=== PATIENT | female | born 1945 | race Caucasian/White ===

== ENCOUNTER 2016-11-13 09:24 | Emergency (ER) | payer MEDICARE ==
[2016-11-13] MEDS ORDERED: ASPIRIN 81 MG TABLET, CHEWABLE PO ONE (09:55)
--- NOTE | 2016-11-13 09:56 | ER Document Report ---
ED Medical Screen (RME) <APPLE EMMANUEL - Last Filed: 11/13/16 12:23> - General Mode of Arrival: Wheelchair Information source: Patient TRAVEL OUTSIDE OF THE [place] IN LAST 30 DAYS: No <[facility] VERONICA - Last Filed: 11/13/16 13:08> <ANNALISEACE ANN - Last Filed: 11/13/16 14:02> - General Chief Complaint: Shortness Of Breath Stated Complaint: SHORTNESS OF BREATH Time Seen by Provider: 11/13/16 09:52 Notes: Patient is a 71 year old female presenting to the ED today with complaints of shortness of breath and leg swelling for one month. Patient reports an increase of her shortness of breath over the last few days. Patient states she just returned home from a one week cruise. Patient drove to the cruise departure port and back home. Patient is not on blood thinners. Pt reports similar symptoms 4 years ago before aaortic valve was replaced. Pt denies cough or fevers. (UMU VERONICA) - Related Data Allergies/Adverse Reactions: metformin Allergy (Verified 11/13/16 09:29) Diarrhea Past Medical History - Past Medical History Cardiac Medical History: Reports: Hx Hypertension - MEDICATED Denies: Hx Heart Attack Pulmonary Medical History: Reports: Hx Asthma - SYMPTOMS IN THE FALL, NO MEDS SINCE FALL 2013 Neurological Medical History: Reports: Hx Migraine. Denies: Hx Cerebrovascular Accident, Hx Seizures Endocrine Medical History: Reports: Hx Hypothyroidism Renal/ Medical History: Denies: Hx Peritoneal Dialysis GI Medical History: Denies: Hx Hepatitis, Hx Hiatal Hernia, Hx Ulcer Infectious Medical History: Denies: Hx Hepatitis Past Surgical History: Reports: Hx Cardiac Surgery - valve replacement, Hx Hysterectomy, Hx Open Heart Surgery - December 18 2012, aortic valve replaced. Denies: Hx Mastectomy, Hx Pacemaker - Immunizations Hx Diphtheria, Pertussis, Tetanus Vaccination: Yes <[facility] VERONICA - Last Filed: 11/13/16 13:08> Review of Systems - Review of Systems Respiratory: See HPI, Short of breath. denies: Cough <[facility] VERONICA - Last Filed: 11/13/16 13:08> Physical Exam - Respiratory Respiratory status: No respiratory distress Chest status: Nontender Breath sounds: Normal <[facility] VERONICA - Last Filed: 11/13/16 13:08> - Extremities General lower extremity: Edema - b/l <ACE WOODY - Last Filed: 11/13/16 14:02> - Vital signs Vitals: Temp Pulse Resp BP Pulse Ox 97.7 F 56 L 20 172/78 H 95 11/13/16 09:30 11/13/16 09:30 11/13/16 09:30 11/13/16 09:30 11/13/16 09:30 Course - Laboratory Result Diagrams: 11/13/16 10:21 11/13/16 10:21 <APPLE EMMANUEL - Last Filed: 11/13/16 12:23> - Laboratory Result Diagrams: 11/13/16 10:21 11/13/16 10:21 <[facility] VERONICA - Last Filed: 11/13/16 13:08> - Laboratory Result Diagrams: 11/13/16 10:21 11/13/16 10:21 <ACE WOODY - Last Filed: 11/13/16 14:02> - Re-evaluation Re-evalutation: 11/13/16 12:[address] Perez in agreement the patient needs to be transferred or they could do a semiurgent catheter. Called by didn't at 1224 waiting for call back. (APPLE EMMANUEL) 11/13/16 14:02 I personally performed the services described in the documentation, reviewed and edited the documentation which was dictated to the scribe in my presence, and it accurately records my words and actions. (ACE WOODY) - Vital Signs Vital signs: Temp Pulse Resp BP Pulse Ox 97.7 F 57 L 19 145/82 H 96 11/13/16 09:32 11/13/16 09:32 11/13/16 12:37 11/13/16 12:37 11/13/16 12:37 - Laboratory Laboratory results interpreted by me: 11/13/16 11/13/16 11/13/16 10:21 10:21 10:21 WBC 13.8 H MCH 26.6 L RDW 15.8 H Absolute Neutrophils 10.3 H D-Dimer 0.72 H Glucose 112 H Alkaline Phosphatase 144 H Creatine Kinase 195 H Doctor's Discharge <APPLE EMMANUEL - Last Filed: 11/13/16 12:23> <[facility] VERONICA - Last Filed: 11/13/16 13:08> <ACE WOODY - Last Filed: 11/13/16 14:02> - Discharge Clinical Impression: angina acute, mild congestive heart failure Condition: Stable Disposition: [facility] Referrals: ESTEBAN BAEZA MD [Primary Care Provider] - Follow up as needed Scribe Documentation - Scribe Written by Scribe:: Crystal Wallis, 11/13/2016 1030 acting as scribe for :: Annalise <[facility] VERONICA - Last Filed: 11/13/16 13:08>
[2016-11-13 10:28] LABS: APPEARANCE,URINE CLEAR; BILIRUBIN,URINE NEGATIVE (NEGATIVE); GLUCOSE, URINE NEGATIVE (NEGATIVE); KETONES,URINE NEGATIVE (NEGATIVE); LEUKOCYTE ESTERASE,URINE NEGATIVE (NEGATIVE); NITRITE,URINE NEGATIVE (NEGATIVE); PROTEIN,URINE NEGATIVE (NEGATIVE); URINE SPECIFIC GRAVITY 1.005; UROBILINOGEN,URINE NEGATIVE mg/dL (<2.0)
[2016-11-13 10:39] LABS: ABSOLUTE BASOPHILS # (AUTO) 0.1 10^3/uL (0.0-0.2); ABSOLUTE EOSINOPHILS # (AUTO) 0.3 10^3/uL (0.0-0.6); ABSOLUTE LYMPHOCYTES (AUTO) 2.2 10^3/uL (0.5-4.7); ABSOLUTE NEUT (AUTO) 10.3 10^3/uL (1.7-8.2); BASOPHILS % (AUTO) 0.5 % (0-2); EOSINOPHILS % (AUTO) 2.3 % (0-6); HEMATOCRIT 41.1 % (36.0-47.0); HEMOGLOBIN 13.3 g/dL (12.0-15.5); HGB HCT DIFFERENCE -1.2; LYMPHOCYTES % (AUTO) 15.8 % (13-45); MEAN CORPUSCULAR HEMOGLOBIN 26.6 pg (27.0-33.4); MEAN CORPUSCULAR HGB CONC 32.4 g/dL (32.0-36.0); MEAN CORPUSCULAR VOLUME 82 fl (80-97); RED CELL DISTRIBUTION WIDTH 15.8 % (11.5-14.0); SEGMENTED NEUTROPHILS % (AUTO) 74.4 % (42-78); WHITE BLOOD COUNT 13.8 10^3/uL (4.0-10.5)
[2016-11-13 10:43] LABS: PROTHROMBIN TIME 13.4 SEC (11.4-15.4)
[2016-11-13 10:46] LABS: D-DIMER 0.72 ug/mL (0.00-0.50)
[2016-11-13 10:56] LABS: ALANINE AMINOTRANSFERASE 29 U/L (9-52); ALKALINE PHOSPHATASE 144 U/L (38-126); ANION GAP 10 (5-19); ASPARTATE AMINO TRANSFERASE 22 U/L (14-36); BLOOD UREA NITROGEN 17 mg/dL (7-20); CALCIUM 9.3 mg/dL (8.4-10.2); CARBON DIOXIDE 30 mmol/L (22-30); CHLORIDE 102 mmol/L (98-107); CREATININE RESULT 0.76 mg/dL (0.52-1.25); GLUCOSE 112 mg/dL (75-110); POTASSIUM 4.3 mmol/L (3.6-5.0)
[2016-11-13 10:57] LABS: BILIRUBIN,DIRECT 0.4 mg/dL (0.0-0.4); BILIRUBIN,TOTAL 0.8 mg/dL (0.2-1.3); CREATINE KINASE 195 U/L (30-135); TOTAL PROTEIN 6.9 g/dL (6.3-8.2)
[2016-11-13 11:26] LABS: CREATINE KINASE MB 3.37 ng/mL (<4.55); TROPONIN I < 0.012 ng/mL
[2016-11-13] MEDS ORDERED: FUROSEMIDE INJ/PF 100 MG/10 ML SDV IV ONE (12:24)
--- NOTE | 2016-11-13 12:24 | ER Document Report ---
ED Cardiac - General Mode of Arrival: Wheelchair Information source: Patient TRAVEL OUTSIDE OF THE [place] IN LAST 30 DAYS: No - HPI Patient complains to provider of: Shortness of breath Associated symptoms: Other - See above <ZAINA LEON - Last Filed: 11/13/16 14:30> <APPEL EMMANUEL - Last Filed: 11/18/16 10:35> - General Chief Complaint: Shortness Of Breath Stated Complaint: SHORTNESS OF BREATH Time Seen by Provider: 11/13/16 09:52 Notes: Patient is a 71-year-old female, with a past medical history including CHF, who presents emergency department complaining of shortness of breath for the past few months. Patient states the shortness of breath has gotten much worse over the last week and is exacerbated by laying down and with exertion to the point where she takes 2 steps she has extreme difficulty breathing. Patient reports she just returned from a cruise yesterday, her was very concerned for her well-being this past week. Patient also complains of leg swelling, her primary care physician is aware of this. Patient currently takes 40 of Lasix 1 time daily. Patient had aortic valve surgery in 2012 and had a hernia surgery this year, denies history of heart attack or cardiac stents. Patient's last cardiac stress test was done 2 years ago. PCP: Dr. Baeza (ZAINA LEON) - Related Data Allergies/Adverse Reactions: metformin Allergy (Verified 11/13/16 09:29) Diarrhea Past Medical History - General Information source: Patient - Social History Smoking Status: Never Smoker Chew tobacco use (# tins/day): No Frequency of alcohol use: None Drug Abuse: None Family History: Reviewed & Not Pertinent Patient has suicidal ideation: No Patient has homicidal ideation: No - Past Medical History Cardiac Medical History: Reports: Hx Congestive Heart Failure, Hx Hypertension - MEDICATED Pulmonary Medical History: Reports: Hx Asthma - SYMPTOMS IN THE FALL, NO MEDS SINCE FALL 2013 Neurological Medical History: Reports: Hx Migraine Endocrine Medical History: Reports: Hx Hypothyroidism Past Surgical History: Reports: Hx Cardiac Surgery - valve replacement, Hx Herniorrhaphy, Hx Hysterectomy, Hx Open Heart Surgery - December 18 2012, aortic valve replaced - Immunizations Hx Diphtheria, Pertussis, Tetanus Vaccination: Yes <ZAINA LEON - Last Filed: 11/13/16 14:30> Review of Systems - Review of Systems Constitutional: No symptoms reported EENT: No symptoms reported Cardiovascular: No symptoms reported Respiratory: See HPI, Short of breath Gastrointestinal: No symptoms reported Genitourinary: No symptoms reported Female Genitourinary: No symptoms reported Musculoskeletal: See HPI, Leg swelling Skin: No symptoms reported Hematologic/Lymphatic: No symptoms reported Neurological/Psychological: No symptoms reported -: Yes All other systems reviewed and negative <ZAINA LEON - Last Filed: 11/13/16 14:30> Physical Exam - Vital signs Interpretation: Normal - General General appearance: Appears well, Alert - HEENT Head: Normocephalic, Atraumatic - Respiratory Respiratory status: No respiratory distress Chest status: Nontender Breath sounds: Rales Chest palpation: Normal - Cardiovascular Rhythm: Regular Heart sounds: Normal auscultation Murmur: No - Abdominal Inspection: Other - reducible vertral hernia Bowel sounds: Normal Tenderness: Nontender Organomegaly: No organomegaly - Extremities General upper extremity: Normal inspection General lower extremity: Other - no obvious cellulitis, calf tenderness, or pitting edema - Neurological Neuro grossly intact: Yes Cognition: Normal Orientation: AAOx4 Yelena Coma Scale Eye Opening: Spontaneous Yelena Coma Scale Verbal: Oriented Yelena Coma Scale Motor: Obeys Commands [place] Coma Scale Total: 15 Speech: Normal - Psychological Associated symptoms: Normal affect, Normal mood - Skin Skin Temperature: Warm Skin Moisture: Dry Skin Color: Normal <ZAINA LEON - Last Filed: 11/13/16 14:30> Course - Laboratory Result Diagrams: 11/13/16 10:21 11/13/16 10:21 - Consults Dr. Perez Time consulted: 12:20 Katelyn Time consulted: 12:22 - Requested transfer <ZAINA LEON - Last Filed: 11/13/16 14:30> - Laboratory Result Diagrams: 11/13/16 10:21 11/13/16 10:21 <APPLE EMMANUEL - Last Filed: 11/18/16 10:35> - Re-evaluation Re-evalutation: 11/13/16 12:25 Patient presents emergency department with a severe shortness of breath with activity. She says she's been getting increasingly short of breath for the last couple months but for the past week she can't take 2 steps without being so short of breath she has to completely stop what she is doing and sit down. She is also been laying in the upright position and only been able to sleep for 2 hours at a time. She does have a history of open heart surgery 4 years ago secondary to aortic valve which was repaired. She has not had any recent stress test or heart catheterizations. She has no history of WI or blockages that she is aware of. She does have mild congestive heart failure on chest x-ray with mildly elevated BNP but no acute respiratory distress at rest. states he just got back from a cruise and he thought she was going to on the [place] to get a wheelchair because she was short of breath. No recent history of DVT or pulmonary emboli she's had chronic right leg swelling which has been evaluated by the primary care not found to be a DVT. At this point EKG doesn't show any acute changes troponin is stable and give her Chris Lasix IV. Spoke with the hospitalist patient needs a semiurgent heart catheter and we do not do that here so she is going be transferred to [facility] they can do a heart catheterization on her clinical concerns at this time #1 heart blockages number to congestive heart failure exacerbation I do not think at this moment this is an acute pulmonary embolism but that can be considered if other avenues pursued to be negative. Patient also does not have acute pneumonia. (APPLE EMMANUEL) - Vital Signs Vital signs: Temp Pulse Resp BP Pulse Ox 97.7 F 57 L 16 147/69 H 96 11/13/16 09:32 11/13/16 09:32 11/13/16 15:36 11/13/16 15:36 11/13/16 15:36 - Laboratory Laboratory results interpreted by me: 11/13/16 11/13/16 11/13/16 10:21 10:21 10:21 WBC 13.8 H MCH 26.6 L RDW 15.8 H Absolute Neutrophils 10.3 H D-Dimer 0.72 H Glucose 112 H Alkaline Phosphatase 144 H Creatine Kinase 195 H - Consults [facility] Reason for consultation: 11/13/16 13:45 (ZAINA LEON) Critical Care Note - Critical Care Note Total time excluding time spent on procedures (mins): 55 <APPLE EMMANUEL - Last Filed: 11/18/16 10:35> Discharge <ZAINA LEON - Last Filed: 11/13/16 14:30> <APPLE EMMANUEL - Last Filed: 11/18/16 10:35> - Discharge Clinical Impression: angina acute, mild congestive heart failure Condition: Stable Disposition: [facility] Referrals: ESTEBAN BAEZA MD [Primary Care Provider] - Follow up as needed Scribe Attestation: 11/13/16 12:26 I personally performed the services described in the documentation reviewed the documentation recorded by my scribe in my presence and it accurately and completely records my words and actions (APPLE EMMANUEL) Scribe Documentation - Scribe Written by Scribe:: donna Montesinos, 11/13/16, 1250 acting as scribe for :: Jori <ZAINA LEON - Last Filed: 11/13/16 14:30>
[2016-11-13 15:54] VITALS: BP 147/69
--- NOTE | 2016-11-13 18:43 | EKG REPORT ---
SEVERITY:- OTHERWISE NORMAL ECG - SINUS RHYTHM BORDERLINE LEFT AXIS DEVIATION : Confirmed by: Ramila Mack 13-Nov-2016 18:42:52
== END 2016-11-13 15:54 | disposition short-term general hospital (02) ==
LOC: ER 09:24
DX: I20.9 Angina pectoris, unspecified (principal); I50.9 Heart failure, unspecified; R06.02 Shortness of breath; I11.0 Hypertensive heart disease with heart failure; E03.9 Hypothyroidism, unspecified; Z95.2 Presence of prosthetic heart valve; Z90.710 Acquired absence of both cervix and uterus
CPT/HCPCS: 93005; 99291; 96374; 36415; 82553; 82550; 85025; 85610; 80053; 81001; 84484; 85379; 83880; 71020; 93010; A9270; J1940